=== PATIENT | male | born 1955 | race Caucasian/White ===

== ENCOUNTER 2019-08-26 04:42 | Inpatient (IN) ==
--- NOTE | 2019-08-18 13:36 | EKG Report ---
Test Performed on : 08/18/2019 1:21:50 PM Test Reason : PAT Blood Pressure : / mmHG Vent. Rate : 064 BPM Atrial Rate : 064 BPM P-R Int : 196 ms QRS Dur : 108 ms QT Int : 428 ms P-R-T Axes : 073 -49 034 degrees QTc Int : 441 ms Sinus rhythm. with occasional premature ventricular complexes. Left anterior fascicular block Minimal voltage criteria for LVH, may be normal variant Anterolateral infarct (cited on or before 08-AUG-2011) Abnormal ECG When compared with ECG of 08-AUG-2011 12:21, premature ventricular complexes. are now present Questionable change in initial forces of Anterior leads Unconfirmed Result
[2019-08-18 13:39] LABS: BASO# 0.03 X1000 (0.0-0.2); BASO% 0.3 % (0.0-0.8); EOS# 0.03 X1000 (0.0-0.7); EOS% 0.3 % (0.0-10.0); HEMATOCRIT 45.6 % (42.0-52.0); HEMOGLOBIN 15.2 g/dL (14.0-18.0); IMM GRAN# 0.03 X1000 (0.0-0.04); IMM GRAN% 0.3 % (0.0-0.5); LYMPH% 20.7 % (20.5-51.1); MCH 30.6 PG (27-31); MCHC 33.3 g/dL (33-37); MCV 91.8 FL (81-99); MONO# 1.03 X1000 (0.11-0.59); MONO% 10.1 % (1.7-9.3); MPV 8.4 FL (7.4-10.4); NEUT# 6.94 X1000 (1.4-6.5); NEUT% 68.3 % (42.2-75.2); PLT 362 X1000 (130-400); RBC 4.97 XMIL (4.7-6.1); RDW 12.6 % (11.5-14.5); WBC 10.16 X1000 (4.8-10.8)
[2019-08-18 13:51] LABS: AGAP 14; BUN 13 mg/dL (8-22); CALCIUM 9.6 mg/dL (8.8-10.2); CHLORIDE 91 mmol/L (98-107); COSMO 258; CREATININE 0.8 mg/dL (0.7-1.2); ESTIMATED GFR > 60; GLUCOSE 104 mg/dL (70-104); POTASSIUM 3.4 mmol/L (3.5-5.1); SODIUM 128 mmol/L (136-145); TCO2 23 mmol/L (25-35)
[2019-08-26] MEDS ORDERED: REGLAN ONE (06:15)
[2019-08-26] MEDS ORDERED: PEPCID ONE (06:15)
[2019-08-26] MEDS ORDERED: ENTEREG ONE (06:15)
[2019-08-26] MEDS ORDERED: LR 1,000 ML ONE ×2 (06:16→07:10)
[2019-08-26] MEDS ORDERED: INVANZ 1 GM/NS 1 GM/50 ML IVPB ONE (06:16)
[2019-08-26] MEDS ORDERED: MARCAINE 0.25% PF/EPI 1:200,000 ONE (07:10)
[2019-08-26] MEDS ORDERED: DIPRIVAN 1% ONE (07:37)
[2019-08-26] MEDS ORDERED: VERSED ONE (07:37)
[2019-08-26] MEDS ORDERED: XYLOCAINE-MPF 2% ONE (07:37)
[2019-08-26] MEDS ORDERED: QUELICIN (DOSE) ONE (07:37)
[2019-08-26] MEDS ORDERED: ROBINUL ONE ×2 (07:37→08:43)
[2019-08-26] MEDS ORDERED: MARCAINE 0.25% ONE (07:45)
[2019-08-26] MEDS ORDERED: EXPAREL 1.3% ONE (07:46)
[2019-08-26] MEDS ORDERED: SODIUM CHLORIDE 0.9% 10 ML ONE (07:46)
[2019-08-26] MEDS ORDERED: ZEMURON ONE (07:57)
[2019-08-26] MEDS ORDERED: DECADRON ONE (07:57)
[2019-08-26] MEDS ORDERED: ZOFRAN ONE (07:57)
[2019-08-26] MEDS ORDERED: TORADOL ONE (07:57)
[2019-08-26] MEDS ORDERED: OFIRMEV 1000 MG/ISOTONIC SOLN 1,000 MG/100 ML BOTTLE ONE (07:57)
[2019-08-26] MEDS ORDERED: FENTANYL ONE (08:10)
[2019-08-26 08:23] LABS: URINE SOURCE CATH
[2019-08-26 08:33] LABS: BILIRUBIN URINE NEGATIVE (NEGATIVE); BLOOD URINE SMALL (NEGATIVE); COLOR YELLOW; GLUCOSE URINE NEGATIVE (NEGATIVE); KETONE URINE 60 mg/dL (NEGATIVE); LEUKOCYTES URINE NEGATIVE (NEGATIVE); NITRITE URINE NEGATIVE (NEGATIVE); PROTEIN URINE TRACE mg/dL (NEGATIVE); SP GRAVITY URINE 1.021; TURBIDITY URINE CLEAR (CLEAR); UROBILINOGEN URINE NORMAL (NORMAL)
[2019-08-26 08:35] LABS: UR EPITHELIAL CELLS <10 /HPF (<10); URINE BACTERIA NEGATIVE /HPF; URINE RBC <10 /HPF (<10); URINE WBC <10 /HPF (<10)
[2019-08-26] MEDS ORDERED: NEOSTIGMINE ONE (08:43)
[2019-08-26] MEDS ORDERED: NS 1,000 ML ONE (09:39)
[2019-08-26] MEDS ORDERED: ZOFRAN IV PRN (10:29)
[2019-08-26] MEDS: NS 1,000 ML IV SCH (10:30)
[2019-08-26] MEDS: OFIRMEV 1000 MG/ISOTONIC SOLN 1,000 MG/100 ML BOTTLE IV SCH ×2 (16:57→22:01)
[2019-08-26] MEDS ORDERED: FLU VACCINE IM ONE (17:06)
--- NOTE | 2019-08-26 17:08 | OPERATIVE NOTE ---
PROCEDURE DATE: 08/26/2019 PROCEDURE PERFORMED: Laparoscopic-assisted resection of ileocolic anastomosis in portion of the transverse colon with construction of new ileocolic anastomosis. SURGEON: Ankit Alvarez MD. CHURCH HISTORY TEACHER: Naveen Rodriguez RN. PREOP DIAGNOSIS: Tubular adenoma of the ileocolic anastomosis. POSTOP DIAGNOSIS: Tubular adenoma of the ileocolic anastomosis. DESCRIPTION OF PROCEDURE: Satisfactory general endotracheal anesthesia was achieved. A TAP block was accomplished by the anesthesiologist. The abdomen was then prepped and draped in a sterile fashion. We anesthetized the skin below the umbilicus. We made a 10 mm vertical incision dissected down the fascia, scored the fascia, introduced 11 trocar Optiview technique. We insufflated through this trocar. We then introduced 11 trocar in the left upper quadrant and 11 trocar in the right upper quadrant at the lateral aspect of the old transverse scar. We identified the tattooed area. We then placed the patient in reverse Trendelenburg and turned him to the left. We then began dividing the greater omentum to mobilize the previous ileocolic anastomosis. We went from near the level of the pylorus laterally. We mobilized the hepatic flexure. The previously dissected ilium was fairly free but we divided the peritoneal attachment so that this portion of anastomosed bowel was free. We felt that going through the old scar was appropriate. So after adequate mobilization of this ileocolic anastomosis we felt we could then flatten the patient and bring it out through the old scar. We then used local anesthesia in the area of the old scar. We desufflated, removed our trocars. We made a 7 cm transverse incision exactly where the old scar was, carried our incision through the subcutaneous tissue through the anastomotic sheaths, the edge of the rectus and into the abdominal cavity. We then placed a small wound protector. We were able to easily grasp the affected bowel and deliver it out of the abdominal cavity. The tattooed area was seen closed. We divided the ilium with a DL 80 in a tapered fashion. We then cleaned off the transverse colon and divided it adequately away from the tattooed area. We scored the peritoneum with the electrocautery. We then divided the mesentery with the LigaSure until we could hand off the specimen. We then approximated the end of the colon to the end of the small bowel, placed a 3-0 silk to approximate those side by side. We then cut off the staple corner of each limb of the bowel introduced a DL 80 once again to construct a staple [id number] anastomosis. The open end of the bowel on each side was then grasped with an Allis and a TA 60 stapler was used to staple off the open end of each limb of the bowel. We then inverted the staple line with interrupted 3-0 silks. An additional 3-0 silk was placed at the opposite end of the staple line to take the tension off the morgan. We changed gloves at this point and rid ourselves of contaminated instruments. We then closed the mesentery with 3-0 silks. We dropped the anastomosis back inside the abdomen. We removed the wound protector, closed the posterior rectus sheath and peritoneum with interrupted 3-0 Polysorb. The anterior rectus sheath and external oblique aponeurosis was closed with interrupted 0 Polysorb. Irrigated out subcutaneous tissue. We closed the subcutaneous tissue with 3-0 Polysorb. We placed our two 11 trocars back in and re-insufflated. I then introduced a 5 trocar through our right lateral abdominal wall wound. We looked and hemostasis was satisfactory. No other abnormalities were identified. We then used a Claudy-Kerry wound closure for the left upper quadrant trocar site passing a 2-0 Polysorb through the abdominal wall. After that we desufflated, removed our trocars and closed the fascia in the subumbilical incision with a 2-0 Polysorb under direct visualization. We then closed the skin at each incision with 4-0 Polysorb subcuticular stitches. Sterile OpSites were applied. He tolerated it well and was sent to the recovery room in satisfactory condition. cc: MD MATHEW Biggs
[2019-08-26] MEDS: ULTRAM PO PRN (22:00)
[2019-08-26] MEDS: PERIDEX MT SCH (22:00)
[2019-08-26] MEDS: LOVENOX SUBQ SCH (22:01)
[2019-08-27] MEDS: NS 1,000 ML IV SCH
[2019-08-27] MEDS: OFIRMEV 1000 MG/ISOTONIC SOLN 1,000 MG/100 ML BOTTLE IV SCH ×2 (04:04→11:30)
--- NOTE | 2019-08-27 07:10 | GENERAL SURGERY PROGRESS NOTE ---
DATE: 08/26/2019 Mr. Rodriguez is postop ileocolic and partial transverse colectomy. He is doing well. He feels comfortable. He has had no significant pain. His hemodynamics were good. We will encourage good pulmonary toilet. cc: Ankit Alvarez MD
[2019-08-27 07:24] LABS: BASO# 0.02 X1000 (0.0-0.2); BASO% 0.2 % (0.0-0.8); EOS# 0.03 X1000 (0.0-0.7); EOS% 0.3 % (0.0-10.0); HEMATOCRIT 38.3 % (42.0-52.0); HEMOGLOBIN 12.4 g/dL (14.0-18.0); IMM GRAN# 0.02 X1000 (0.0-0.04); IMM GRAN% 0.2 % (0.0-0.5); LYMPH# 1.64 X1000 (1.2-3.4); LYMPH% 15.8 % (20.5-51.1); MCH 30.3 PG (27-31); MCHC 32.4 g/dL (33-37); MCV 93.6 FL (81-99); MONO# 1.25 X1000 (0.11-0.59); MPV 8.9 FL (7.4-10.4); NEUT# 7.44 X1000 (1.4-6.5); NEUT% 71.5 % (42.2-75.2); PLT 288 X1000 (130-400); RBC 4.09 XMIL (4.7-6.1); RDW 12.8 % (11.5-14.5)
[2019-08-27] MEDS ORDERED: NS 1,000 ML IV SCH (07:33)
[2019-08-27] MEDS: LIPITOR PO SCH (09:34)
[2019-08-27] MEDS: PERIDEX MT SCH ×2 (09:34→22:49)
[2019-08-27] MEDS: ENTEREG PO SCH ×2 (09:34→22:49)
[2019-08-27] MEDS: PRINIVIL PO SCH (09:34)
--- NOTE | 2019-08-27 15:54 | GENERAL SURGERY PROGRESS NOTE ---
DATE: 08/27/2019 SUBJECTIVE: He is postop day 2 after colon resection. He is doing generally well. He is afebrile. Hemodynamics are good. White count is 10,400, hemoglobin 12.4. Plan today is to remove his Santillan. We will start him on clear liquids and reduce his IV rate. cc: Ankit Alvarez MD
[2019-08-27] MEDS: ULTRAM PO PRN (16:57)
[2019-08-27] MEDS: LOVENOX SUBQ SCH (22:50)
[2019-08-28] MEDS ORDERED: SALINE LOCK IV FLUID XX ONE (07:37)
--- NOTE | 2019-08-28 07:56 | GENERAL SURGERY PROGRESS NOTE ---
DATE: 08/28/2019 He is afebrile, heart rate 58, blood pressure 128/61. His bowels did move, and he is passing flatus, relieving some pressure in his abdomen. He is urinating satisfactorily. Intake 2216, output 1850. Plan is to advance his diet today. Hopefully, will be able to discharge him by tomorrow. cc: Ankit Alvarez MD
[2019-08-28] MEDS: ENTEREG PO SCH ×2 (08:09→23:04)
[2019-08-28] MEDS: LIPITOR PO SCH (08:09)
[2019-08-28] MEDS: PRINIVIL PO SCH (08:09)
[2019-08-28] MEDS: PERIDEX MT SCH ×2 (08:09→23:04)
[2019-08-28] MEDS: LOVENOX SUBQ SCH (23:04)
[2019-08-29] MEDS: ENTEREG PO SCH (08:49)
[2019-08-29] MEDS: PRINIVIL PO SCH (08:49)
[2019-08-29] MEDS: LIPITOR PO SCH (08:49)
[2019-08-29] MEDS: PERIDEX MT SCH (08:49)
[2019-08-29 15:59] VITALS: BP 152/79
--- NOTE | 2019-08-29 21:28 | GENERAL SURGERY PROGRESS NOTE ---
DATE: 08/29/2019 SUBJECTIVE: Mr. Rodriguez is doing generally well. He has passed some gas today. He has been eating some uneventfully and has had no nausea. He has good bowel sounds. I will let him go home. We discussed wound care, activity, and diet. He will return to see me in the office in a week. cc: Ankit Alvarez MD
--- NOTE | 2019-09-10 19:32 | DISCHARGE SUMMARY ---
ADMISSION DATE: 08/26/2019 DISCHARGE DATE: 08/29/2019 PRIMARY DISCHARGE DIAGNOSIS: Tubular adenoma of the colon. PRIMARY PROCEDURE: Laparoscopic-assisted resection of the ileocolic anastomosis with construction of a new ileocolic anastomosis. HISTORY: This is a 63-year-old who had undergone a previous right colon resection for an adenomatous polyp. He now presents with another one at the anastomosis that was not able to be resected with the colonoscope. HOSPITAL COURSE: Following his bowel prep at home, he was admitted on 08/26 and underwent the above-noted procedure. Postoperatively, he did quite well. We removed his Santillan on 08/27 and started him on clear liquids. We reduced his IV rate. By 08/29 he had passed gas, we had advanced his diet and it was felt he could be discharged home. His wound was fine. DISCHARGE INSTRUCTIONS: We discussed discharge instructions. He will return to see me in the office in a week. cc: MD Ronny Del Rosario MD
== END 2019-08-29 17:00 | disposition home or self-care (01) | DRG 331 ==
LOC: SURHOLD 04:42 → 4N 10:17
PROVIDERS: ADMIT Surgery; ATTEND Surgery